=== PATIENT | male | born 2000 | race Two or more races ===

== ENCOUNTER 2022-04-30 22:55 | Emergency (ER) | payer BC, OTHER ==
[~2022-04-30] VITALS: Ht 180.3 cm; Wt 113.4 kg
[2022-04-30 23:02] VITALS: BP 138/85
== END 2022-05-01 01:53 | disposition left against medical advice (07) ==
LOC: ER 22:55
DX: R00.2 Palpitations (principal); Z53.21 Procedure and treatment not carried out due to patient leaving prior to being seen by health care provider